=== PATIENT | male | born 1955 | race Caucasian/White ===

== ENCOUNTER 2016-07-23 06:26 | Day surgery (SDC) | payer OTHER ==
[~2016-07-23] VITALS: Ht 177.8 cm; Wt 67.0 kg
[~2016-07-23 06:26] MED LIST: LACTATED RINGERS 1,000 ML IV SCH; SODIUM CHLORIDE FLUSH 3 ML SYR IV PRN
[2016-07-23 06:37] VITALS: BP 137/92
[2016-07-23] MEDS ORDERED: BUDE8.43 NS (06:45)
[2016-07-23] MEDS ORDERED: MULT-955 PO (06:45)
[2016-07-23] MEDS ORDERED: LSNP20T PO (06:45)
[2016-07-23] MEDS ORDERED: SODIUM CHLORIDE FLUSH ONE (06:55)
[2016-07-23] MEDS ORDERED: MIDAZOLAM 2 MG/2 ML (VERSED) VIAL ONE (06:59)
[2016-07-23] MEDS ORDERED: ALFENTANIL 500 MCG/ML (ALFENTA) 5 ML AMP IV ONE ×2 (06:59)
[2016-07-23] MEDS ORDERED: PROPOFOL 20 ML IV ONE (06:59)
[2016-07-23 08:15] VITALS: BP 134/87
[2016-07-23 08:42] VITALS: BP 151/99
--- NOTE | 2016-07-23 10:51 | OPERATIVE REPORT ---
DATE OF OPERATION: 07/23/2016 PRE-OPERATIVE DIAGNOSIS: Screening colonoscopy. POST-OPERATIVE DIAGNOSIS: 1. Colon polyps. 2. Sigmoid diverticulosis. OPERATIVE PROCEDURE: Total colonoscopy with polypectomy (endoscopic mucosal resection). SURGEON: Andrea Wagner MD ANESTHESIA: Monitored anesthesia care FINDINGS: 1. The bowel prep was excellent. 2. There were 2 polyps were noted in the colon which were removed using the saline lift technique. One was in the ascending colon and one was a bit larger in the sigmoid colon at 25 cm. Path is pending. 3. There were diverticula noted throughout the sigmoid colon. 4. No angiodysplasia or inflammation were seen. INDICATIONS: The patient is a 60-year-old referred by Dr. Greenwood for colonoscopy screening. He hasn't had any bowel habit changes. DESCRIPTION OF PROCEDURE: The patient was informed of the risks and benefits and agreed to proceed. He was placed in the left lateral decubitus position and administered IV sedation. When properly sedated a rectal exam was performed, which was normal. The lighted endoscope was passed into the rectum and slowly advanced along the colon. At 25 cm his first polyp was noted, photographed, and removed using the saline lift and cautery snare. It was retrieved for pathology. The scope was then advanced along the rest of the colon to the cecum where the ileocecal valve and appendiceal orifice were easily seen. The scope was brought into the ascending colon where the second polyp was noted. This one was more flat and difficult to see, but was able to be removed using the saline lift technique. The transverse, descending, and sigmoid colon appear otherwise unremarkable accept for diverticula distally. The rectum appeared normal on regular view and retroflexion. The scope was removed completing the procedure. The patient tolerated the procedure without complications. If these return to service inspector to be adenomas I would recommend repeat screening colonoscopy in 5 years.
== END 2016-07-23 08:47 | disposition home or self-care (01) ==
LOC: ASC 06:26
PROVIDERS: ATTEND Surgery
DX: Z12.11 Encounter for screening for malignant neoplasm of colon (principal); D12.2 Benign neoplasm of ascending colon; D12.5 Benign neoplasm of sigmoid colon; K57.30 Diverticulosis of large intestine without perforation or abscess without bleeding; I10 Essential (primary) hypertension
CPT/HCPCS: 45390; J2250; J7120